=== PATIENT | female | born 1960 | race Caucasian/White ===

== ENCOUNTER 2018-11-20 21:12 | Inpatient (IN) | payer MEDICARE, OTHER ==
[2018-11-20 22:06] LABS: ADD MAN DIFF? NO
[2018-11-20] MEDS: SOD CHLORIDE 0.9% 1,000 ML IV (22:06)
[2018-11-20] MEDS: DILTIAZEM 25 MG INJ IV ×2 (22:07→22:34)
[2018-11-20 22:08] LABS: BASOPHILS % 0.6 % (0.0-2.0); EOSINOPHILS # 0.2 10^3/ul (0.0-0.5); EOSINOPHILS % 2.7 % (0.0-7.0); HEMATOCRIT 40.5 % (37.0-47.0); HEMOGLOBIN 13.4 g/dl (12.0-16.0); LYMPHOCYTES # 1.9 10^3/ul (0.8-2.9); LYMPHOCYTES % 30.2 % (15.0-51.0); MEAN CORPUSCULAR HEMOGLOBIN 29.8 pg (29.0-33.0); MEAN CORPUSCULAR HGB CONC 33.1 g/dl (32.0-37.0); MEAN PLATELET VOLUME 10.5 fl (7.4-10.4); MONOCYTE # 0.3 10^3/ul (0.3-0.9); MONOCYTES % 4.7 % (0.0-11.0); NEUTROPHIL # 3.8 10^3/ul (1.6-7.5); NEUTROPHILS % 61.5 % (39.0-77.0); PLATELET COUNT 226 10^3/UL (140-415); RED CELL DISTRIBUTION WIDTH 14.3 % (11.5-14.5)
[2018-11-20 22:08] LABS: WHITE BLOOD COUNT 6.2 10^3/ul (4.8-10.8)
[2018-11-20 22:29] LABS: ANION GAP 8 (5-13); BLOOD UREA NITROGEN 21 mg/dl (7-20); CALCIUM 9.3 mg/dl (8.4-10.2); CARBON DIOXIDE 25 mmol/L (21-31); CHLORIDE 107 mmol/L (97-110); CREATININE 0.63 mg/dl (0.44-1.00); Estimated GFR > 60 mL/min (>60); GLUCOSE 144 mg/dl (70-220); POTASSIUM 3.8 mmol/L (3.5-5.1); SODIUM 140 mmol/L (135-144)
[2018-11-20 22:40] LABS: TROPONIN-I 0.013 ng/ml (0.000-0.120)
[2018-11-20] MEDS ORDERED: DILTIAZEM-D5W 125MG/125ML DRIP 125 ML IV (23:00)
[2018-11-20] MEDS: CEFTRIAXONE 1 GM/50 ML (PMX) 50 ML IVPB (23:01)
[2018-11-20] MEDS ORDERED: NACL 0.9% 3 ML SYG IV (23:30)
[2018-11-20] MEDS ORDERED: NITROGLYCERIN (SL) 0.4 MG TAB SL (23:30)
[2018-11-20] MEDS ORDERED: ASPIRIN 81 MG TAB PO (23:30)
[2018-11-20] MEDS ORDERED: ONDANSETRON 4 MG INJ IV ×2 (23:30)
[2018-11-20] MEDS: DILTIAZEM-D5W 125MG/125ML DRIP 125 ML IV (23:34)
[2018-11-20] MEDS: AZITHROMYCIN 500MG/NS (PMX) 250 ML IV (23:46)
[2018-11-21] MEDS: ACETAMINOPHEN 325 MG TAB PO ×3 (00:01→17:25)
[2018-11-21 00:31] LABS: CREATINE KINASE 48 IU/L (23-200)
[2018-11-21 00:40] LABS: CK INDEX 1.8; CK-MB 0.85 ng/ml (0.0-2.4)
[2018-11-21 00:45] LABS: TROPONIN-I 0.014 ng/ml (0.000-0.120)
[2018-11-21] MEDS: METOPROLOL 25 MG TAB PO ×3 (02:04→20:34)
[2018-11-21] MEDS: LEVALBUTEROL (NEB) 0.63 MG/3 ML AMP HHN ×2 (03:14→08:12)
[2018-11-21] MEDS: IPRATROPIUM (NEB) 0.5 MG/2.5 ML AMP HHN ×2 (03:14→08:11)
[2018-11-21 03:20] LABS: ADD MAN DIFF? NO
[2018-11-21 03:21] LABS: WHITE BLOOD COUNT 7.1 10^3/ul (4.8-10.8)
[2018-11-21 03:21] LABS: BASOPHILS % 0.4 % (0.0-2.0); EOSINOPHILS # 0.2 10^3/ul (0.0-0.5); EOSINOPHILS % 2.6 % (0.0-7.0); HEMOGLOBIN 11.9 g/dl (12.0-16.0); LYMPHOCYTES # 2.5 10^3/ul (0.8-2.9); LYMPHOCYTES % 34.9 % (15.0-51.0); MEAN CORPUSCULAR HEMOGLOBIN 29.7 pg (29.0-33.0); MEAN CORPUSCULAR HGB CONC 33.1 g/dl (32.0-37.0); MEAN CORPUSCULAR VOLUME 89.8 fl (82.0-101.0); MEAN PLATELET VOLUME 10.6 fl (7.4-10.4); MONOCYTE # 0.3 10^3/ul (0.3-0.9); MONOCYTES % 4.8 % (0.0-11.0); NEUTROPHILS % 56.9 % (39.0-77.0); PLATELET COUNT 197 10^3/UL (140-415); RED BLOOD COUNT 4.01 10^6/ul (4.20-5.40); RED CELL DISTRIBUTION WIDTH 14.6 % (11.5-14.5)
[2018-11-21 03:34] LABS: HEMOGLOBIN A1C 5.7 % (0-5.9)
[2018-11-21 03:38] LABS: LACTIC ACID 0.9 mmol/L (0.5-2.0)
[2018-11-21 03:39] LABS: CREATINE KINASE 38 IU/L (23-200)
[2018-11-21 03:50] LABS: CK INDEX 2.6; CK-MB 0.97 ng/ml (0.0-2.4); TROPONIN-I 0.014 ng/ml (0.000-0.120)
[2018-11-21 03:51] LABS: ALANINE AMINOTRANSFERASE 33 IU/L (13-69); ALBUMIN 3.5 g/dl (3.3-4.9); ALKALINE PHOSPHATASE 118 IU/L (42-121); ANION GAP 7 (5-13); ASPARTATE AMINO TRANSFERASE 30 IU/L (15-46); BILIRUBIN,INDIRECT 0.2 mg/dl (0-1.1); BILIRUBIN,TOTAL 0.2 mg/dl (0.2-1.3); BLOOD UREA NITROGEN 20 mg/dl (7-20); CALCIUM 8.5 mg/dl (8.4-10.2); CARBON DIOXIDE 24 mmol/L (21-31); CHLORIDE 112 mmol/L (97-110); CHOL/HDL RATIO 5.2 RATIO; CHOLESTEROL 157 mg/dl (100-200); CREATININE 0.56 mg/dl (0.44-1.00); Estimated GFR > 60 mL/min (>60); GLUCOSE 113 mg/dl (70-220); HDL CHOLESTEROL 30 mg/dl (35-98); LDL CHOLESTEROL,CALCULATED 64 mg/dl; MAGNESIUM 1.9 mg/dl (1.7-2.5); SODIUM 143 mmol/L (135-144); TOTAL PROTEIN 6.4 g/dl (6.1-8.1); TRIGLYCERIDES 313 mg/dl (0-149)
[2018-11-21 08:22] LABS: CREATINE KINASE 45 IU/L (23-200)
[2018-11-21 08:34] LABS: CK INDEX 2.3; CK-MB 1.03 ng/ml (0.0-2.4); TROPONIN-I 0.012 ng/ml (0.000-0.120)
[2018-11-21] MEDS: FUROSEMIDE 20 MG INJ IV (08:35)
[2018-11-21] MEDS: LEVOFLOXACIN 500MG/D5W (PMX) 100 ML IVPB ×2 (08:46→10:27)
[2018-11-21] MEDS: ASPIRIN (EC) 81 MG TAB PO (08:46)
[2018-11-21] MEDS: FUROSEMIDE 20 MG TAB PO (08:47)
[2018-11-21] MEDS: ENOXAPARIN 40 MG/0.4 ML SYG SC (08:56)
[2018-11-21] MEDS: FLUTICASONE 0.05% 16 GM NAS SPRAY NASAL (09:00)
[2018-11-21] MEDS: FUROSEMIDE 40 MG INJ IV (09:00)
[2018-11-21] MEDS ORDERED: FUROSEMIDE 20 MG INJ IV (09:30)
[2018-11-21] MEDS: BUDESONIDE (NEB) 0.5MG/2ML AMP HHN ×2 (09:30→20:00)
[2018-11-21] MEDS: METHYLPREDNISOLONE 125 MG INJ IV (10:27)
[2018-11-21 12:32] LABS: CREATINE KINASE 51 IU/L (23-200)
[2018-11-21 12:44] LABS: CK INDEX 1.9; CK-MB 0.99 ng/ml (0.0-2.4); TROPONIN-I < 0.012 ng/ml (0.000-0.120)
[2018-11-21] MEDS: ALBUTEROL/IPRATROPIUM (NEB) 3 ML AMP HHN ×2 (13:54→20:00)
[2018-11-21] MEDS: DIGOXIN 500 MCG INJ IV ×2 (17:26→21:20)
[2018-11-21] MEDS: DILTIAZEM 25 MG INJ IV (19:11)
[2018-11-21] MEDS: APIXABAN 5 MG TABLET PO (20:34)
[2018-11-21] MEDS: ATORVASTATIN 20 MG TAB PO (20:34)
[2018-11-22] MEDS: DIGOXIN 500 MCG INJ IV ×2 (01:01→05:11)
[2018-11-22] MEDS: ALBUTEROL/IPRATROPIUM (NEB) 3 ML AMP HHN ×4 (01:30→20:17)
[2018-11-22 06:24] LABS: ADD MAN DIFF? NO
[2018-11-22 06:34] LABS: BASOPHILS % 0.1 % (0.0-2.0); HEMATOCRIT 37.8 % (37.0-47.0); HEMOGLOBIN 12.5 g/dl (12.0-16.0); LYMPHOCYTES # 0.8 10^3/ul (0.8-2.9); LYMPHOCYTES % 7.5 % (15.0-51.0); MEAN CORPUSCULAR HEMOGLOBIN 29.6 pg (29.0-33.0); MEAN CORPUSCULAR HGB CONC 33.1 g/dl (32.0-37.0); MEAN CORPUSCULAR VOLUME 89.6 fl (82.0-101.0); MEAN PLATELET VOLUME 10.6 fl (7.4-10.4); MONOCYTE # 0.3 10^3/ul (0.3-0.9); MONOCYTES % 2.4 % (0.0-11.0); NEUTROPHIL # 9.2 10^3/ul (1.6-7.5); NEUTROPHILS % 89.3 % (39.0-77.0); PLATELET COUNT 226 10^3/UL (140-415); RED BLOOD COUNT 4.22 10^6/ul (4.20-5.40)
[2018-11-22 06:34] LABS: WHITE BLOOD COUNT 10.3 10^3/ul (4.8-10.8)
[2018-11-22 06:38] LABS: INR 1.17; PT RATIO 1.2
[2018-11-22 07:08] LABS: B-TYPE NATRIURETIC PEPTIDE 3540 PG/ML (0-125)
[2018-11-22 07:11] LABS: ALANINE AMINOTRANSFERASE 36 IU/L (13-69); ALBUMIN 3.8 g/dl (3.3-4.9); ALBUMIN/GLOBULIN RATIO 1.22; ALKALINE PHOSPHATASE 109 IU/L (42-121); ANION GAP 7 (5-13); ASPARTATE AMINO TRANSFERASE 25 IU/L (15-46); BILIRUBIN,INDIRECT 0.3 mg/dl (0-1.1); BILIRUBIN,TOTAL 0.3 mg/dl (0.2-1.3); BLOOD UREA NITROGEN 22 mg/dl (7-20); CALCIUM 9.7 mg/dl (8.4-10.2); CARBON DIOXIDE 29 mmol/L (21-31); CHLORIDE 105 mmol/L (97-110); CREATININE 0.69 mg/dl (0.44-1.00); Estimated GFR > 60 mL/min (>60); GLUCOSE 157 mg/dl (70-220); SODIUM 141 mmol/L (135-144); TOTAL PROTEIN 6.9 g/dl (6.1-8.1)
[2018-11-22 07:12] LABS: MAGNESIUM 2.1 mg/dl (1.7-2.5)
[2018-11-22 07:12] LABS: PHOSPHORUS 3.8 mg/dl (2.5-4.9)
[2018-11-22] MEDS: BUDESONIDE (NEB) 0.5MG/2ML AMP HHN ×2 (07:48→20:17)
[2018-11-22] MEDS: APIXABAN 5 MG TABLET PO ×2 (08:24→20:06)
[2018-11-22] MEDS: METOPROLOL 25 MG TAB PO ×2 (08:25→20:02)
[2018-11-22] MEDS: FUROSEMIDE 20 MG INJ IV (08:26)
[2018-11-22] MEDS: LEVOFLOXACIN 500MG/D5W (PMX) 100 ML IVPB (08:30)
[2018-11-22] MEDS ORDERED: METHYLPREDNISOLONE 125 MG INJ IV (09:00)
[2018-11-22] MEDS: predniSONE 20 MG TAB PO (10:43)
[2018-11-22] MEDS: FLUTICASONE 0.05% 16 GM NAS SPRAY NASAL (10:44)
[2018-11-22] MEDS: DIGOXIN 0.25 MG TAB PO (16:27)
[2018-11-22] MEDS: ATORVASTATIN 20 MG TAB PO (20:06)
[2018-11-22] MEDS ORDERED: METHYLPREDNISOLONE 40 MG INJ IV (21:00)
[2018-11-23 05:59] LABS: ADD MAN DIFF? NO
[2018-11-23 06:05] LABS: WHITE BLOOD COUNT 9.3 10^3/ul (4.8-10.8)
[2018-11-23 06:05] LABS: BASOPHILS % 0.1 % (0.0-2.0); EOSINOPHILS % 0.1 % (0.0-7.0); HEMATOCRIT 37.1 % (37.0-47.0); HEMOGLOBIN 12.3 g/dl (12.0-16.0); LYMPHOCYTES # 1.4 10^3/ul (0.8-2.9); LYMPHOCYTES % 14.5 % (15.0-51.0); MEAN CORPUSCULAR HEMOGLOBIN 29.6 pg (29.0-33.0); MEAN CORPUSCULAR HGB CONC 33.2 g/dl (32.0-37.0); MEAN CORPUSCULAR VOLUME 89.4 fl (82.0-101.0); MEAN PLATELET VOLUME 10.2 fl (7.4-10.4); MONOCYTE # 0.5 10^3/ul (0.3-0.9); MONOCYTES % 5.5 % (0.0-11.0); NEUTROPHIL # 7.4 10^3/ul (1.6-7.5); NEUTROPHILS % 79.4 % (39.0-77.0); PLATELET COUNT 218 10^3/UL (140-415); RED BLOOD COUNT 4.15 10^6/ul (4.20-5.40); RED CELL DISTRIBUTION WIDTH 14.5 % (11.5-14.5)
[2018-11-23 06:45] LABS: ALANINE AMINOTRANSFERASE 31 IU/L (13-69); ALBUMIN 3.6 g/dl (3.3-4.9); ALBUMIN/GLOBULIN RATIO 1.24; ALKALINE PHOSPHATASE 96 IU/L (42-121); ANION GAP 9 (5-13); ASPARTATE AMINO TRANSFERASE 18 IU/L (15-46); BILIRUBIN,INDIRECT 0.2 mg/dl (0-1.1); BILIRUBIN,TOTAL 0.2 mg/dl (0.2-1.3); BLOOD UREA NITROGEN 24 mg/dl (7-20); CALCIUM 9.2 mg/dl (8.4-10.2); CARBON DIOXIDE 31 mmol/L (21-31); CHLORIDE 102 mmol/L (97-110); CREATININE 0.58 mg/dl (0.44-1.00); Estimated GFR > 60 mL/min (>60); GLUCOSE 123 mg/dl (70-220); MAGNESIUM 2.2 mg/dl (1.7-2.5); POTASSIUM 4.2 mmol/L (3.5-5.1); SODIUM 142 mmol/L (135-144); TOTAL PROTEIN 6.5 g/dl (6.1-8.1)
[2018-11-23] MEDS: ALBUTEROL/IPRATROPIUM (NEB) 3 ML AMP HHN ×2 (08:17→13:50)
[2018-11-23] MEDS: BUDESONIDE (NEB) 0.5MG/2ML AMP HHN ×2 (08:25→20:01)
[2018-11-23] MEDS: APIXABAN 5 MG TABLET PO ×2 (08:50→21:08)
[2018-11-23] MEDS: METOPROLOL 25 MG TAB PO ×2 (08:51→21:09)
[2018-11-23] MEDS: predniSONE 20 MG TAB PO (08:51)
[2018-11-23] MEDS: LEVOFLOXACIN 500MG/D5W (PMX) 100 ML IVPB (08:54)
[2018-11-23] MEDS: FLUTICASONE 0.05% 16 GM NAS SPRAY NASAL (08:54)
[2018-11-23] MEDS: FUROSEMIDE 20 MG INJ IV (08:56)
[2018-11-23] MEDS: DIGOXIN 0.25 MG TAB PO (12:30)
[2018-11-23] MEDS ORDERED: LEVALBUTEROL (NEB) 0.63 MG/3 ML AMP HHN (15:30)
[2018-11-23] MEDS: ATORVASTATIN 20 MG TAB PO (21:08)
[2018-11-24] MEDS: LEVOFLOXACIN 500 MG TAB PO (05:43)
[2018-11-24 07:46] LABS: ADD MAN DIFF? NO
[2018-11-24 07:54] LABS: BASOPHILS % 0.3 % (0.0-2.0); EOSINOPHILS # 0.1 10^3/ul (0.0-0.5); EOSINOPHILS % 0.9 % (0.0-7.0); HEMATOCRIT 38.5 % (37.0-47.0); HEMOGLOBIN 12.3 g/dl (12.0-16.0); LYMPHOCYTES # 2.1 10^3/ul (0.8-2.9); LYMPHOCYTES % 23.1 % (15.0-51.0); MEAN CORPUSCULAR HEMOGLOBIN 29.3 pg (29.0-33.0); MEAN CORPUSCULAR HGB CONC 31.9 g/dl (32.0-37.0); MEAN CORPUSCULAR VOLUME 91.7 fl (82.0-101.0); MEAN PLATELET VOLUME 10.1 fl (7.4-10.4); MONOCYTE # 0.5 10^3/ul (0.3-0.9); MONOCYTES % 5.3 % (0.0-11.0); NEUTROPHIL # 6.4 10^3/ul (1.6-7.5); PLATELET COUNT 206 10^3/UL (140-415); RED CELL DISTRIBUTION WIDTH 14.6 % (11.5-14.5)
[2018-11-24 07:54] LABS: WHITE BLOOD COUNT 9.1 10^3/ul (4.8-10.8)
[2018-11-24 08:15] LABS: DIGOXIN 1.1 ng/ml (1.0-2.0)
[2018-11-24 08:16] LABS: ALANINE AMINOTRANSFERASE 28 IU/L (13-69); ALBUMIN 3.4 g/dl (3.3-4.9); ALBUMIN/GLOBULIN RATIO 1.21; ALKALINE PHOSPHATASE 89 IU/L (42-121); ANION GAP 4 (5-13); ASPARTATE AMINO TRANSFERASE 21 IU/L (15-46); B-TYPE NATRIURETIC PEPTIDE 3770 PG/ML (0-125); BILIRUBIN,INDIRECT 0.2 mg/dl (0-1.1); BILIRUBIN,TOTAL 0.2 mg/dl (0.2-1.3); BLOOD UREA NITROGEN 22 mg/dl (7-20); CARBON DIOXIDE 32 mmol/L (21-31); CHLORIDE 103 mmol/L (97-110); CREATININE 0.61 mg/dl (0.44-1.00); Estimated GFR > 60 mL/min (>60); GLUCOSE 127 mg/dl (70-220); POTASSIUM 4.1 mmol/L (3.5-5.1); SODIUM 139 mmol/L (135-144); TOTAL PROTEIN 6.2 g/dl (6.1-8.1)
[2018-11-24] MEDS: BUDESONIDE (NEB) 0.5MG/2ML AMP HHN (08:27)
[2018-11-24] MEDS ORDERED: FUROSEMIDE 40 MG TAB PO (09:00)
[2018-11-24] MEDS: METOPROLOL 25 MG TAB PO (09:00)
[2018-11-24] MEDS: FLUTICASONE 0.05% 16 GM NAS SPRAY NASAL (09:03)
[2018-11-24] MEDS: APIXABAN 5 MG TABLET PO (09:05)
[2018-11-24] MEDS: predniSONE 20 MG TAB PO (09:05)
[2018-11-24] MEDS: DIGOXIN 0.25 MG TAB PO (12:27)
[2018-11-26 13:47] LABS: PROCALCITONIN <0.10 ng/mL (<0.10)
== END 2018-11-24 14:46 | disposition home or self-care (01) | DRG 189 ==
LOC: TEL 23:08 → E/R 21:12
DX: J96.01 Acute respiratory failure with hypoxia (principal); I50.33 Acute on chronic diastolic (congestive) heart failure; J45.901 Unspecified asthma with (acute) exacerbation; I69.959 Hemiplegia and hemiparesis following unspecified cerebrovascular disease affecting unspecified side; I49.8 Other specified cardiac arrhythmias; I48.91 Unspecified atrial fibrillation; I69.922 Dysarthria following unspecified cerebrovascular disease; I11.0 Hypertensive heart disease with heart failure; E78.5 Hyperlipidemia, unspecified; I05.2 Rheumatic mitral stenosis with insufficiency
CPT/HCPCS: 36415; 71045; 80048; 80053; 80061; 80162; 82550; 82553; 83036; 83605; 83735; 83880; 84100; 84145; 84439; 84443; 84484; 85025; 85610; 87040; 90686; 93005; 93306; 94640; 94664; 96374; 96375; 99291-25